=== PATIENT | male | born 1960 | race Caucasian/White ===

== ENCOUNTER → 2018-07-14 | Outpatient (REF) | payer BC ==
[2018-07-14 14:50] LABS: BASO # 0.1 10^3/uL (0.0-0.2); BASO % 1.2 % (0.0-1.0); EOS # 0.3 10^3/uL (0.0-0.50); EOS % 4.4 % (0.0-3.0); HEMATOCRIT 45.3 % (42.0-52.0); HEMOGLOBIN 15.8 g/dl (13.5-17.5); IMMATURE GRANULOCYTE % 0.2 % (0-3.0); LYMPH # 1.8 10^3/uL (1.5-4.5); LYMPH % 30.6 % (24.0-44.0); MEAN CORPUSCULAR HEMOGLOBIN 31.7 pg (27.0-33.0); MEAN CORPUSCULAR HGB CONC 34.9 g/dl (32.0-36.5); MONO # 0.5 10^3/uL (0.0-0.8); MONO % 8.6 % (0.0-5.0); NEUTROPHILS # 3.1 10^3/uL (1.8-7.7); PLATELET COUNT, AUTOMATED 257 10^3/uL (150-450); RED BLOOD COUNT 4.98 10^6/uL (4.30-6.10); RED CELL DISTRIBUTION WIDTH 12.2 % (11.5-14.5); WHITE BLOOD COUNT 5.7 10^3/uL (4.0-10.0)
[2018-07-14 14:56] LABS: ALBUMIN 4.1 GM/DL (3.2-5.2); ALBUMIN/GLOBULIN RATIO 1.32 (1.00-1.93); ALKALINE PHOSPHATASE 66 U/L (45-117); ALT/SGPT 43 U/L (12-78); ANION GAP 7 MEQ/L (8-16); AST/SGOT 21 U/L (7-37); BILIRUBIN,TOTAL 0.5 MG/DL (0.2-1.0); BLOOD UREA NITROGEN 12 MG/DL (7-18); CALCIUM LEVEL 8.2 MG/DL (8.5-10.1); CARBON DIOXIDE LEVEL 29 MEQ/L (21-32); CHLORIDE LEVEL 105 MEQ/L (98-107); CHOLESTEROL LEVEL 271 MG/DL (<200); CHOLESTEROL RISK RATIO 5.113 (<5); CREATININE FOR GFR 1.12 MG/DL (0.70-1.30); FREE T4 1.02 NG/DL (0.76-1.46); GLOMERULAR FILTRATION RATE > 60.0 (>56); GLUCOSE, FASTING 99 MG/DL (70-100); HDL CHOLESTEROL 53 MG/DL (>40); LDL CHOLESTEROL 183 MG/DL (<100); NON-HDL-C 218 MG/DL; POTASSIUM SERUM 4.2 MEQ/L (3.5-5.1); PSA SCREENING 2.8 NG/ML (< 4.0); SODIUM LEVEL 141 MEQ/L (136-145); TOTAL PROTEIN 7.2 GM/DL (6.4-8.2); TRIGLYCERIDES LEVEL 175 MG/DL (<150)
[2018-07-14 14:58] LABS: TOTAL 25(OH) VITAMIN D 37.3 NG/ML (30.0-100.0)
[2018-07-14 15:27] LABS: ESTIMATED AVERAGE GLUCOSE 108 MG/DL (60-110); HEMOGLOBIN A1c 5.4 %
== END ==
LOC: M SFHCSACK 09:26
DX: I10 Essential (primary) hypertension (principal); E83.51 Hypocalcemia; E03.8 Other specified hypothyroidism; R73.01 Impaired fasting glucose; E78.2 Mixed hyperlipidemia; Z12.5 Encounter for screening for malignant neoplasm of prostate; E55.9 Vitamin D deficiency, unspecified
CPT/HCPCS: 84443

== ENCOUNTER → 2018-08-18 | Outpatient (REF) | payer BC | LOC: M SFHCPLAZ 17:38 | PROVIDERS: ATTEND Dermatology | DX: L72.0 Epidermal cyst (principal) ==

== ENCOUNTER → 2018-11-10 | Outpatient (REF) | payer BC ==
[2018-11-10 14:27] LABS: BASO # 0.1 10^3/uL (0.0-0.2); BASO % 0.9 % (0.0-1.0); EOS # 0.2 10^3/uL (0.0-0.50); EOS % 3.3 % (0.0-3.0); HEMATOCRIT 44.7 % (42.0-52.0); HEMOGLOBIN 15.1 g/dl (13.5-17.5); LYMPH # 1.3 10^3/uL (1.5-4.5); LYMPH % 22.4 % (24.0-44.0); MEAN CORPUSCULAR HEMOGLOBIN 31.9 pg (27.0-33.0); MEAN CORPUSCULAR HGB CONC 33.8 g/dl (32.0-36.5); MEAN CORPUSCULAR VOLUME 94.3 fl (80.0-96.0); MONO # 0.5 10^3/uL (0.0-0.8); MONO % 9.2 % (0.0-5.0); NEUTROPHILS # 3.6 10^3/uL (1.8-7.7); NEUTROPHILS % 63.7 % (36.0-66.0); PLATELET COUNT, AUTOMATED 243 10^3/uL (150-450); RED BLOOD COUNT 4.74 10^6/uL (4.30-6.10); WHITE BLOOD COUNT 5.7 10^3/uL (4.0-10.0)
[2018-11-10 14:34] LABS: ALBUMIN 4.1 GM/DL (3.2-5.2); ALT/SGPT 81 U/L (12-78); BILIRUBIN,TOTAL 0.5 MG/DL (0.2-1.0); BLOOD UREA NITROGEN 18 MG/DL (7-18); CALCIUM LEVEL 7.3 MG/DL (8.5-10.1); CARBON DIOXIDE LEVEL 28 MEQ/L (21-32); CHLORIDE LEVEL 106 MEQ/L (98-107); CHOLESTEROL LEVEL 210 MG/DL (<200); CHOLESTEROL RISK RATIO 4.468 (<5); CREATININE FOR GFR 1.11 MG/DL (0.70-1.30); GLOMERULAR FILTRATION RATE > 60.0 (>56); GLUCOSE, FASTING 109 MG/DL (70-100); HDL CHOLESTEROL 47 MG/DL (>40); LDL CHOLESTEROL 125 MG/DL (<100); NON-HDL-C 163 MG/DL; POTASSIUM SERUM 4.7 MEQ/L (3.5-5.1); SODIUM LEVEL 140 MEQ/L (136-145); TOTAL PROTEIN 7.3 GM/DL (6.4-8.2); TRIGLYCERIDES LEVEL 192 MG/DL (<150)
== END ==
LOC: M SFHCSACK 08:17
PROVIDERS: ATTEND Physician Assistant
DX: I10 Essential (primary) hypertension (principal); E78.2 Mixed hyperlipidemia

== ENCOUNTER → 2019-05-25 | Outpatient (REF) | payer BC ==
[2019-05-25 14:36] LABS: BASO % 0.7 % (0.0-1.0); EOS # 0.3 10^3/uL (0.0-0.5); EOS % 4.9 % (0.0-3.0); HEMATOCRIT 42.9 % (42.0-52.0); HEMOGLOBIN 14.5 g/dl (13.5-17.5); LYMPH # 1.3 10^3/uL (1.5-5.0); LYMPH % 23.1 % (24.0-44.0); MEAN CORPUSCULAR HEMOGLOBIN 32.5 pg (27.0-33.0); MEAN CORPUSCULAR HGB CONC 33.8 g/dl (32.0-36.5); MEAN CORPUSCULAR VOLUME 96.2 fl (80.0-96.0); MONO # 0.6 10^3/uL (0.0-0.8); MONO % 10.6 % (0.0-5.0); NEUTROPHILS # 3.5 10^3/uL (1.5-8.5); NEUTROPHILS % 60.4 % (36.0-66.0); PLATELET COUNT, AUTOMATED 219 10^3/uL (150-450); RED BLOOD COUNT 4.46 10^6/uL (4.30-6.10); WHITE BLOOD COUNT 5.8 10^3/uL (4.0-10.0)
[2019-05-25 14:50] LABS: ALT/SGPT 55 U/L (12-78); BILIRUBIN,TOTAL 0.5 MG/DL (0.2-1.0); BLOOD UREA NITROGEN 19 MG/DL (7-18); CALCIUM LEVEL 6.8 MG/DL (8.5-10.1); CARBON DIOXIDE LEVEL 29 MEQ/L (21-32); CHLORIDE LEVEL 105 MEQ/L (98-107); CHOLESTEROL LEVEL 171 MG/DL (<200); CHOLESTEROL RISK RATIO 3.717 (<5); CREATININE FOR GFR 1.03 MG/DL (0.70-1.30); FREE T4 1.08 NG/DL (0.76-1.46); GLOMERULAR FILTRATION RATE > 60.0 (>56); GLUCOSE, FASTING 113 MG/DL (70-100); HDL CHOLESTEROL 46 MG/DL (>40); LDL CHOLESTEROL 90 MG/DL (<100); NON-HDL-C 125 MG/DL; POTASSIUM SERUM 4.4 MEQ/L (3.5-5.1); SODIUM LEVEL 141 MEQ/L (136-145); THYROID STIMULATING HORMONE 0.459 uIU/ML (0.358-3.740); TRIGLYCERIDES LEVEL 176 MG/DL (<150)
[2019-05-25 14:52] LABS: TOTAL 25(OH) VITAMIN D 41.3 NG/ML (30.0-100.0)
== END ==
LOC: M SFHCSACK 08:14
PROVIDERS: ATTEND Physician Assistant
DX: I10 Essential (primary) hypertension (principal); R73.01 Impaired fasting glucose; E06.3 Autoimmune thyroiditis; E78.2 Mixed hyperlipidemia; E55.9 Vitamin D deficiency, unspecified

== ENCOUNTER → 2019-06-08 | Outpatient (REF) | payer BC ==
[2019-06-08 15:16] LABS: ALBUMIN 4.1 GM/DL (3.2-5.2); BILIRUBIN,DIRECT 0.1 MG/DL (0.0-0.2); BILIRUBIN,TOTAL 0.6 MG/DL (0.2-1.0); CALCIUM LEVEL 7.1 MG/DL (8.5-10.1); CHOLESTEROL RISK RATIO 3.982 (<5); FREE T4 0.97 NG/DL (0.76-1.46); PHOSPHORUS LEVEL 4.9 MG/DL (2.5-4.9); THYROID STIMULATING HORMONE 0.422 uIU/ML (0.358-3.740); TOTAL PROTEIN 7.2 GM/DL (6.4-8.2)
== END ==
LOC: M LAB REF 14:28
PROVIDERS: ATTEND Internal Medicine Endocrinology, Diabetes & Metabolism
DX: E89.2 Postprocedural hypoparathyroidism (principal)

== ENCOUNTER → 2019-09-03 | Outpatient (CLI) | payer BC ==
[2019-09-03 15:01] LABS: CALCIUM LEVEL 7.3 MG/DL (8.5-10.1); PHOSPHORUS LEVEL 5.1 MG/DL (2.5-4.9)
== END ==
LOC: M SFHCSACK 09:12
PROVIDERS: ATTEND Family Medicine
DX: E89.2 Postprocedural hypoparathyroidism (principal); E29.1 Testicular hypofunction

== ENCOUNTER → 2020-01-21 | Outpatient (REF) | payer BC ==
[~2020-01-21] MED LIST: BISO5TAB14 PO; CAND16TA7 PO; CAND32TA9 PO; CYMB60CA3 PO; KETO10TAB PO; LEVO150T7 PO; LORA0.5T5 PO; SIMV40TA20 PO
[2020-01-21 11:23] LABS: BASO # 0.1 10^3/uL (0.0-0.2); BASO % 1.1 % (0.0-1.0); EOS # 0.3 10^3/uL (0.0-0.5); EOS % 5.1 % (0.0-3.0); HEMATOCRIT 44.8 % (42.0-52.0); HEMOGLOBIN 14.9 g/dl (13.5-17.5); LYMPH # 1.7 10^3/uL (1.5-5.0); LYMPH % 26.4 % (24.0-44.0); MEAN CORPUSCULAR HEMOGLOBIN 32.1 pg (27.0-33.0); MEAN CORPUSCULAR HGB CONC 33.3 g/dl (32.0-36.5); MEAN CORPUSCULAR VOLUME 96.6 fl (80.0-96.0); MONO # 0.6 10^3/uL (0.0-0.8); MONO % 9.3 % (0.0-5.0); NEUTROPHILS # 3.7 10^3/uL (1.5-8.5); NEUTROPHILS % 57.5 % (36.0-66.0); PLATELET COUNT, AUTOMATED 239 10^3/uL (150-450); RED BLOOD COUNT 4.64 10^6/uL (4.30-6.10); WHITE BLOOD COUNT 6.5 10^3/uL (4.0-10.0)
[2020-01-21 11:28] LABS: ALBUMIN 3.8 GM/DL (3.2-5.2); ALT/SGPT 81 U/L (12-78); BILIRUBIN,TOTAL 0.4 MG/DL (0.2-1.0); BLOOD UREA NITROGEN 12 MG/DL (7-18); CALCIUM LEVEL 7.6 MG/DL (8.5-10.1); CARBON DIOXIDE LEVEL 29 MEQ/L (21-32); CHLORIDE LEVEL 105 MEQ/L (98-107); CREATININE FOR GFR 1.02 MG/DL (0.70-1.30); GLOMERULAR FILTRATION RATE > 60.0 (>56); GLUCOSE, FASTING 112 MG/DL (70-100); POTASSIUM SERUM 4.5 MEQ/L (3.5-5.1); SODIUM LEVEL 140 MEQ/L (136-145); TOTAL PROTEIN 7.2 GM/DL (6.4-8.2)
[2020-01-21 18:59] LABS: APPEARANCE, URINE CLEAR (CLEAR); BACTERIA, URINE AUTO NEGATIVE (NEGATIVE); BILIRUBIN, URINE AUTO NEGATIVE (NEGATIVE); BLOOD, URINE BLOOD NEGATIVE (NEGATIVE); COLOR, URINE YELLOW (YELLOW); GLUCOSE, URINE (UA) AUTO NEGATIVE (NEGATIVE); KETONE, URINE AUTO NEGATIVE (NEGATIVE); LEUKOCYTE ESTERASE, URINE AUTO TRACE (NEGATIVE); MUCUS, URINE SMALL (NEGATIVE); NITRITE, URINE AUTO NEGATIVE (NEGATIVE); PROTEIN, URINE AUTO NEGATIVE (NEGATIVE); RBC, URINE AUTO 0 /HPF (0-3); SPECIFIC GRAVITY URINE AUTO 1.019 (1.002-1.035); SQUAMOUS EPITHELIAL CELL UR AU 2 /HPF (0-6); UROBILINOGEN, URINE AUTO 0.2 mg/dL (0.0-2.0); WBC, URINE AUTO 5 /HPF (0-3)
[2020-01-22 17:03] LABS: HEPATITIS B SURFACE ANTIBODY POSITIVE (POSITIVE)
[2020-01-22 17:14] LABS: HEPATITIS B SURFACE ANTIGEN NEGATIVE (NEGATIVE)
[2020-01-22 17:42] LABS: HIV 1&2 SCREEN CENTAUR NEGATIVE (NEGATIVE)
[2020-01-26 21:07] LABS: CHLAMYDIA PHARYNGEAL APTIMA Negative (Negative); CHLAMYDIA RECTAL APTIMA Negative (Negative); GC PHARYNGEAL APTIMA Negative (Negative); GC RECTAL APTIMA Negative (Negative)
== END ==
LOC: M SFHCPLAZ 08:45
PROVIDERS: ATTEND Physician Assistant
DX: Z72.52 High risk homosexual behavior (principal); Z12.5 Encounter for screening for malignant neoplasm of prostate
CPT/HCPCS: 36415; 80053; 81001; 85025; 86706; 86780; 87340; 87389; 87491; 87591; G0103

== ENCOUNTER → 2020-02-02 | Outpatient (REF) | payer BC ==
[~2020-02-02] MED LIST changes: +ALBU8.5H INH; +CALC1CAP31 PO; +LORA1TAB4 PO; +OMEP-218 PO; +TRUVTAB PO
[2020-02-02 15:50] LABS: CHLAMYDIA DNA AMPLIFICATION NEGATIVE (NEGATIVE); GC DNA AMPLIFICATION NEGATIVE (NEGATIVE)
== END ==
LOC: M SFHCPLAZ 11:42
PROVIDERS: ATTEND Physician Assistant
DX: Z72.52 High risk homosexual behavior (principal)

== ENCOUNTER → 2020-02-23 | Outpatient (CLI) | payer BC ==
[2020-02-23 13:20] LABS: BLOOD UREA NITROGEN 15 MG/DL (7-18); CALCIUM LEVEL 6.8 MG/DL (8.5-10.1); CARBON DIOXIDE LEVEL 30 MEQ/L (21-32); CHLORIDE LEVEL 103 MEQ/L (98-107); CHOLESTEROL LEVEL 206 MG/DL (<200); CREATININE FOR GFR 1.03 MG/DL (0.70-1.30); GLOMERULAR FILTRATION RATE > 60.0 (>56); GLUCOSE, FASTING 99 MG/DL (70-100); HDL CHOLESTEROL 43 MG/DL (>40); LDL CHOLESTEROL 103 MG/DL (<100); NON-HDL-C 163 MG/DL; PHOSPHORUS LEVEL 3.6 MG/DL (2.5-4.9); POTASSIUM SERUM 4.2 MEQ/L (3.5-5.1); SODIUM LEVEL 137 MEQ/L (136-145); THYROID STIMULATING HORMONE 0.485 uIU/ML (0.358-3.740); TRIGLYCERIDES LEVEL 298 MG/DL (<150)
== END ==
LOC: M PLALAB 09:29
PROVIDERS: ATTEND Internal Medicine Endocrinology, Diabetes & Metabolism
DX: E89.2 Postprocedural hypoparathyroidism (principal); E06.3 Autoimmune thyroiditis; E88.81 Metabolic syndrome and other insulin resistance

== ENCOUNTER 2020-03-03 08:07 | Day surgery (SDC) | payer BC ==
[~2020-03-03] VITALS: Ht 177.8 cm; Wt 106.6 kg
[~2020-03-03 08:07] MED LIST changes: +LIDOCAINE 2% 100MG/5ML SDV (FOR ANES.) As Ordered ONE; +propofoL 200 MG/20 ML VIAL As Ordered ONE
--- NOTE | 2020-04-13 11:31 | ROOR ---
Patient Name: Shemar Kirkpatrick Procedure Date: 03/03/2020 7:35 AM Date of : 1960 Age: 60 Room: [facility] Gender: Male Note Status: Finalized Procedure: Colonoscopy Indications: High risk colon cancer surveillance: Personal history of colonic polyps Providers: Nicholas Abbott Jr, MD Referring MD: Lenore Caballero Requesting Provider: Medicines: Propofol per Anesthesia Complications: No immediate complications. Procedure: Pre-Anesthesia Assessment: - Prior to the procedure, a History and Physical was performed, and patient medications and allergies were reviewed. The patient is competent. The risks and benefits of the procedure and the sedation options and risks were discussed with the patient. All questions were answered and informed consent was obtained. Patient identification and proposed procedure were verified by the physician and the nurse in the pre-procedure area and in the procedure room. Mental Status Examination: alert and oriented. Airway Examination: normal oropharyngeal airway and neck mobility. Respiratory Examination: clear to auscultation. CV Examination: normal. ASA Grade Assessment: II - A patient with mild systemic disease. After reviewing the risks and benefits, the patient was deemed in satisfactory condition to undergo the procedure. The anesthesia plan was to use moderate sedation / analgesia (conscious sedation). Immediately prior to administration of medications, the patient was re-assessed for adequacy to receive sedatives. The heart rate, respiratory rate, oxygen saturations, blood pressure, adequacy of pulmonary ventilation, and response to care were monitored throughout the procedure. The physical status of the patient was re-assessed after the procedure. The Colonoscope was introduced through the anus and advanced to the cecum, identified by appendiceal orifice and ileocecal valve. The colonoscopy was performed without difficulty. The patient tolerated the procedure well. The quality of the bowel preparation was adequate. Findings: The rectum, recto-sigmoid colon, descending colon, cecum, appendiceal orifice and ileocecal valve appeared normal. Non-bleeding external and internal hemorrhoids were found during retroflexion and during endoscopy. The hemorrhoids were Grade II (internal hemorrhoids that prolapse but reduce spontaneously) and Grade III (internal hemorrhoids that prolapse but require manual reduction). Multiple small and large-mouthed diverticula were found in the sigmoid colon. A few small-mouthed diverticula were found in the transverse colon and ascending colon. Impression: - The rectum, recto-sigmoid colon, descending colon, cecum, appendiceal orifice and ileocecal valve are normal. - Non-bleeding external and internal hemorrhoids. - Diverticulosis in the sigmoid colon. - Diverticulosis in the transverse colon and in the ascending colon. - No specimens collected. Recommendation: - Discharge patient to home (ambulatory). - Repeat colonoscopy in 5 years for surveillance. Nicholas Abbott MD Nicholas Abbott Jr, MD 03/03/2020 8:27:25 AM Electronically signed by Nicholas Abbott Jr, MD Number of Addenda: 0 Note Initiated On: 03/03/2020 7:35 AM Estimated Blood Loss: Estimated blood loss: none.
== END 2020-03-03 08:55 | disposition home or self-care (01) ==
LOC: M OPP 08:07
PROVIDERS: ATTEND Surgery
DX: Z12.11 Encounter for screening for malignant neoplasm of colon (principal); Z86.010 Personal history of colon polyps; K64.1 Second degree hemorrhoids; K64.2 Third degree hemorrhoids; K57.30 Diverticulosis of large intestine without perforation or abscess without bleeding; G47.30 Sleep apnea, unspecified; Z79.899 Other long term (current) drug therapy

== ENCOUNTER → 2020-06-21 | Outpatient (REF) | payer BC ==
[~2020-06-21] MED LIST changes: -LIDOCAINE 2% 100MG/5ML SDV (FOR ANES.) As Ordered ONE; -propofoL 200 MG/20 ML VIAL As Ordered ONE
[2020-06-21 14:01] LABS: APPEARANCE, URINE CLEAR (CLEAR); BACTERIA, URINE AUTO NEGATIVE (NEGATIVE); BILIRUBIN, URINE AUTO NEGATIVE (NEGATIVE); BLOOD, URINE BLOOD NEGATIVE (NEGATIVE); COLOR, URINE YELLOW (YELLOW); GLUCOSE, URINE (UA) AUTO NEGATIVE (NEGATIVE); KETONE, URINE AUTO NEGATIVE (NEGATIVE); LEUKOCYTE ESTERASE, URINE AUTO NEGATIVE (NEGATIVE); MUCUS, URINE SMALL (NEGATIVE); NITRITE, URINE AUTO NEGATIVE (NEGATIVE); PROTEIN, URINE AUTO NEGATIVE (NEGATIVE); RBC, URINE AUTO 1 /HPF (0-3); SPECIFIC GRAVITY URINE AUTO 1.024 (1.002-1.035); SQUAMOUS EPITHELIAL CELL UR AU 1 /HPF (0-6); UROBILINOGEN, URINE AUTO 0.2 mg/dL (0.0-2.0); WBC, URINE AUTO 4 /HPF (0-3)
[2020-06-21 14:18] LABS: BLOOD UREA NITROGEN 13 MG/DL (7-18); CARBON DIOXIDE LEVEL 29 MEQ/L (21-32); CHLORIDE LEVEL 104 MEQ/L (98-107); GLOMERULAR FILTRATION RATE > 60.0 (>56); GLUCOSE, FASTING 108 MG/DL (70-100); POTASSIUM SERUM 4.5 MEQ/L (3.5-5.1); SODIUM LEVEL 139 MEQ/L (136-145)
[2020-06-21 15:09] LABS: HIV 1&2 SCREEN CENTAUR NEGATIVE (NEGATIVE)
[2020-06-21 15:36] LABS: CHLAMYDIA DNA AMPLIFICATION NEGATIVE (NEGATIVE); GC DNA AMPLIFICATION NEGATIVE (NEGATIVE)
== END ==
LOC: M SFHCPLAZ 09:07
PROVIDERS: ATTEND Physician Assistant
DX: Z72.52 High risk homosexual behavior (principal)

== ENCOUNTER → 2020-09-29 | Outpatient (CLI) | payer BC ==
[2020-09-29 11:35] LABS: CALCIUM LEVEL 7.1 MG/DL (8.5-10.1); CHOLESTEROL RISK RATIO 4.263 (<5); THYROID STIMULATING HORMONE 0.444 uIU/ML (0.358-3.740)
== END ==
LOC: M PLALAB 08:02
PROVIDERS: ATTEND Internal Medicine Endocrinology, Diabetes & Metabolism
DX: E89.2 Postprocedural hypoparathyroidism (principal); E06.3 Autoimmune thyroiditis; E29.1 Testicular hypofunction; E88.81 Metabolic syndrome and other insulin resistance

== ENCOUNTER → 2020-11-03 | Outpatient (REF) | payer BC ==
[2020-11-03 18:00] LABS: BLOOD UREA NITROGEN 18 MG/DL (7-18); CALCIUM LEVEL 8.8 MG/DL (8.5-10.1); CARBON DIOXIDE LEVEL 31 MEQ/L (21-32); CHLORIDE LEVEL 105 MEQ/L (98-107); CREATININE FOR GFR 0.93 MG/DL (0.70-1.30); GLOMERULAR FILTRATION RATE > 60.0 (>56); GLUCOSE, FASTING 91 MG/DL (70-100); POTASSIUM SERUM 4.1 MEQ/L (3.5-5.1); SODIUM LEVEL 139 MEQ/L (136-145)
[2020-11-03 18:52] LABS: HIV 1&2 SCREEN CENTAUR NEGATIVE (NEGATIVE)
[2020-11-03 18:53] LABS: APPEARANCE, URINE CLEAR (CLEAR); BACTERIA, URINE AUTO NEGATIVE (NEGATIVE); BILIRUBIN, URINE AUTO NEGATIVE (NEGATIVE); BLOOD, URINE BLOOD NEGATIVE (NEGATIVE); COLOR, URINE YELLOW (YELLOW); GLUCOSE, URINE (UA) AUTO NEGATIVE (NEGATIVE); KETONE, URINE AUTO NEGATIVE (NEGATIVE); LEUKOCYTE ESTERASE, URINE AUTO TRACE (NEGATIVE); NITRITE, URINE AUTO NEGATIVE (NEGATIVE); PROTEIN, URINE AUTO NEGATIVE (NEGATIVE); RBC, URINE AUTO 1 /HPF (0-3); SPECIFIC GRAVITY URINE AUTO 1.021 (1.002-1.035); SQUAMOUS EPITHELIAL CELL UR AU 0 /HPF (0-6); UROBILINOGEN, URINE AUTO 0.2 mg/dL (0.0-2.0); WBC, URINE AUTO 7 /HPF (0-3)
[2020-11-03 19:48] LABS: CHLAMYDIA DNA AMPLIFICATION NEGATIVE (NEGATIVE); GC DNA AMPLIFICATION NEGATIVE (NEGATIVE)
== END ==
LOC: M SFHCPLAZ 15:56
PROVIDERS: ATTEND Physician Assistant
DX: Z72.52 High risk homosexual behavior (principal)

== ENCOUNTER → 2021-02-23 | Outpatient (CLI) | payer BC ==
[~2021-02-23] MED LIST changes: +EMTR1TAB16 PO; -TRUVTAB PO
== END ==
LOC: M PLALAB 08:54
PROVIDERS: ATTEND Physician Assistant
DX: Z72.52 High risk homosexual behavior (principal)

== ENCOUNTER → 2021-03-06 | Outpatient (CLI) | payer BC ==
[2021-03-06 14:41] LABS: ALBUMIN 3.8 GM/DL (3.2-5.2); BILIRUBIN,DIRECT 0.2 MG/DL (0.0-0.2); BILIRUBIN,TOTAL 0.5 MG/DL (0.2-1.0)
== END ==
LOC: M PLALAB 11:38
DX: R94.5 Abnormal results of liver function studies (principal)

== ENCOUNTER → 2021-04-11 | Outpatient (CLI) | payer BC ==
[2021-04-11 14:18] LABS: CHOLESTEROL RISK RATIO 4.022 (<5); PHOSPHORUS LEVEL 5.7 MG/DL (2.5-4.9)
== END ==
LOC: M PLALAB 10:41
PROVIDERS: ATTEND Internal Medicine Endocrinology, Diabetes & Metabolism
DX: E89.2 Postprocedural hypoparathyroidism (principal); E88.81 Metabolic syndrome and other insulin resistance

== ENCOUNTER 2021-04-29 09:15 | Emergency (ER) | payer BC ==
[~2021-04-29] VITALS: Ht 177.8 cm; Wt 106.8 kg
[2021-04-29] MEDS ORDERED: KETAMINE HCL 200 MG/20 ML VIAL IV ONE (09:40)
[2021-04-29] MEDS ORDERED: NS 1,000 ML IV SCH (09:40)
--- NOTE | 2021-04-29 09:59 | REP ---
INDICATION: R/O DISLOCATION. COMPARISON: None. TECHNIQUE: Two views of the right shoulder were obtained. FINDINGS: There is an anterior shoulder dislocation. No associated fractures are identified. IMPRESSION: Anterior shoulder dislocation. <Electronically signed by Hemant Grayson > 04/29/21 [id number]
[2021-04-29] MEDS: propofoL 200 MG/20 ML VIAL IV.PROC PRN ×3 (10:59→11:09)
--- NOTE | 2021-04-29 11:31 | REP ---
INDICATION: post reduction. COMPARISON: Right shoulder, 04/29/2021, 9:25 a.m. TECHNIQUE: AP portable image of the right shoulder was obtained. FINDINGS: There has been interval reduction of the anterior shoulder dislocation. There is a small Hill-Sachs deformity. IMPRESSION: Interval reduction of the right anterior shoulder dislocation. There is a small Hill-Sachs deformity. <Electronically signed by Hemant Grayson > 04/29/21 [id number]
[2021-04-29] MEDS ORDERED: CAND16TA7 PO (11:54)
[2021-04-29 13:45] VITALS: BP 145/82
== END 2021-04-29 14:05 | disposition home or self-care (01) ==
LOC: M ED 09:15
DX: S42.291A Other displaced fracture of upper end of right humerus, initial encounter for closed fracture (principal); S43.011A Anterior subluxation of right humerus, initial encounter; W01.0XXA Fall on same level from slipping, tripping and stumbling without subsequent striking against object, initial encounter; Y92.018 Other place in single-family (private) house as the place of occurrence of the external cause; I10 Essential (primary) hypertension; E07.9 Disorder of thyroid, unspecified; Z79.899 Other long term (current) drug therapy; Z79.890 Hormone replacement therapy

== ENCOUNTER → 2021-05-02 | Outpatient (CLI) | payer BC ==
--- NOTE | 2021-05-02 16:14 | REP ---
INDICATION: RT SHOULDER INSTABILITY. COMPARISON: Comparison April 29, 2021. TECHNIQUE: Four views of the right shoulder are obtained. FINDINGS: The right glenohumeral and acromioclavicular joints are normally aligned. There is a superolateral indentation on the proximal humerus suggesting a Hill-Sachs impaction fracture deformity. There is irregularity of the inferior glenoid margin which may be spurring or a Bankart lesion. AC joint is normally aligned. There is a small accessory ossicle at the superior aspect of the AC joint. The visualized right rib cage is normal. IMPRESSION: The right glenohumeral joint remains reduced. Question Hill-Sachs and Bankart lesions. Accessory ossicle at the slightly hypertrophied AC joint. <Electronically signed by Sagar Coley > 05/02/21 [id number]
== END ==
LOC: M SOG 13:57
PROVIDERS: ATTEND Orthopaedic Surgery Sports Medicine
DX: M25.311 Other instability, right shoulder (principal)

== ENCOUNTER → 2021-05-04 | Outpatient (CLI) | payer BC ==
[~2021-05-04] MED LIST changes: +PROHANCE 279.3MG/ML 15ML VIAL As Ordered ONE; +PROHANCE 279.3MG/ML 5ML VIAL As Ordered ONE
--- NOTE | 2021-05-04 16:02 | REP ---
INDICATION: OTHER INSTABILITY RT SHOULDER. COMPARISON: Comparison right shoulder radiographs are from April 29 and May 02, 2021. The earlier radiographic study showed a right glenohumeral anterior inferior dislocation. TECHNIQUE: Pre and post intravenous gadolinium enhanced imaging is acquired as requested. Axial, oblique coronal, and oblique sagittal imaging planes are included. T1-T2 weighted scans are obtained with without fat saturation. The gadolinium enhancement dose is 20 mL of intravenous ProHance. FINDINGS: The glenohumeral articulation is normally aligned. There is however a Hill-Sachs impaction deformity at the superolateral aspect of the humeral head with some adjacent marrow edema. There is a moderate glenohumeral joint effusion. The anterior cartilaginous labrum appears to be stripped off and fragmented material is seen in floating within the axillary recess. The anterior capsule is seen medially from its usual attachment. There is some irregularity of the posterior cartilaginous labrum as well. No definite superior labral tear is seen. Biceps tendon is intact. There is focal T2 hyperintensity in the distal insertion of the supraspinatus tendon consistent with partial thickness supraspinatus lesion. The subscapularis tendon is intact. Infraspinatus tendon shows increased signal intensity adjacent to the Hill-Sachs impaction deformity. IMPRESSION: Evidence of recent anterior inferior glenohumeral dislocation with and extensive anterior cartilaginous labral tear. The fragments of labral material are believed to be visible in the axillary recess. There is a Hill-Sachs impaction fracture deformity. No bony labral fracture is appreciated. A glenohumeral joint effusion is seen. There is increased signal intensity in both the distal supraspinatus and distal infraspinatus tendons. <Electronically signed by Sagar Coley > 05/04/21 [id number]
== END ==
LOC: M RAD 13:36
PROVIDERS: ATTEND Orthopaedic Surgery Sports Medicine
DX: M25.311 Other instability, right shoulder (principal)

== ENCOUNTER → 2021-10-16 | Outpatient (CLI) | payer BC ==
[~2021-10-16] MED LIST changes: +CAND16TA17 PO; -CAND16TA7 PO; +CAND32TA18 PO; -CAND32TA9 PO; -CYMB60CA3 PO; +CYMB60CA4 PO; +OMEP-173 PO; -OMEP-218 PO; -PROHANCE 279.3MG/ML 15ML VIAL As Ordered ONE; -PROHANCE 279.3MG/ML 5ML VIAL As Ordered ONE
== END ==
LOC: M RAD 10:40
PROVIDERS: ATTEND Physician Assistant
DX: M67.432 Ganglion, left wrist (principal)

== ENCOUNTER → 2021-10-16 | Outpatient (CLI) | payer BC ==
[2021-10-16 13:22] LABS: BASO # 0.1 10^3/uL (0.0-0.2); EOS # 0.3 10^3/uL (0.0-0.5); EOS % 5.2 % (0.0-3.0); HEMOGLOBIN 15.4 g/dl (13.5-17.5); LYMPH # 1.5 10^3/uL (1.5-5.0); LYMPH % 26.9 % (24.0-44.0); MEAN CORPUSCULAR HEMOGLOBIN 32.7 pg (27.0-33.0); MEAN CORPUSCULAR VOLUME 93.4 fl (80.0-96.0); MONO # 0.6 10^3/uL (0.0-0.8); MONO % 9.6 % (2.0-8.0); NEUTROPHILS # 3.2 10^3/uL (1.5-8.5); NEUTROPHILS % 56.8 % (36.0-66.0); PLATELET COUNT, AUTOMATED 237 10^3/uL (150-450); RED BLOOD COUNT 4.71 10^6/uL (4.30-6.10); WHITE BLOOD COUNT 5.7 10^3/uL (4.0-10.0)
[2021-10-16 13:57] LABS: ALBUMIN 4.1 GM/DL (3.2-5.2); ALT/SGPT 52 U/L (12-78); BILIRUBIN,TOTAL 0.4 MG/DL (0.2-1.0); BLOOD UREA NITROGEN 17 MG/DL (7-18); CALCIUM LEVEL 7.2 MG/DL (8.5-10.1); CARBON DIOXIDE LEVEL 30 MEQ/L (21-32); CHLORIDE LEVEL 107 MEQ/L (98-107); CHOLESTEROL LEVEL 145 MG/DL (<200); CHOLESTEROL RISK RATIO 3.295 (<5); CREATININE FOR GFR 0.99 MG/DL (0.70-1.30); GLOMERULAR FILTRATION RATE > 60.0 (>56); GLUCOSE, FASTING 94 MG/DL (70-100); HDL CHOLESTEROL 44 MG/DL (>40); LDL CHOLESTEROL 71 MG/DL (<100); NON-HDL-C 101 MG/DL; POTASSIUM SERUM 4.9 MEQ/L (3.5-5.1); SODIUM LEVEL 140 MEQ/L (136-145); TOTAL PROTEIN 6.9 GM/DL (6.4-8.2); TRIGLYCERIDES LEVEL 149 MG/DL (<150)
[2021-10-16 14:42] LABS: HIV 1&2 SCREEN CENTAUR NEGATIVE (NEGATIVE)
== END ==
LOC: M PLALAB 11:30
PROVIDERS: ATTEND Physician Assistant
DX: Z72.52 High risk homosexual behavior (principal)

== ENCOUNTER → 2021-12-11 | Outpatient (CLI) | payer BC ==
[2021-12-11 14:51] LABS: FREE T4 0.94 NG/DL (0.76-1.46); PROSTATIC SPECIFIC AG MONITOR 3.88 NG/ML (< 4.00); THYROID STIMULATING HORMONE 3.49 uIU/ML (0.358-3.740)
[2021-12-11 14:53] LABS: TOTAL 25(OH) VITAMIN D 21.3 NG/ML (30.0-100.0)
== END ==
LOC: M PLALAB 09:38
PROVIDERS: ATTEND Internal Medicine Endocrinology, Diabetes & Metabolism
DX: E06.3 Autoimmune thyroiditis (principal)

== ENCOUNTER → 2022-01-22 | Outpatient (CLI) | payer BC | LOC: M PLALAB 13:22 | PROVIDERS: ATTEND Physician Assistant | DX: R97.20 Elevated prostate specific antigen [PSA] (principal) ==

== ENCOUNTER → 2022-03-20 | Outpatient (REF) | payer BC | LOC: M SMT 13:18 | PROVIDERS: ATTEND Urology | DX: R97.20 Elevated prostate specific antigen [PSA] (principal) ==

== ENCOUNTER → 2022-06-11 | Outpatient (CLI) | payer BC ==
[2022-06-11 15:43] LABS: BLOOD UREA NITROGEN 20 MG/DL (7-18); CALCIUM LEVEL 7.2 MG/DL (8.8-10.2); CARBON DIOXIDE LEVEL 27 MEQ/L (21-32); CHLORIDE LEVEL 103 MEQ/L (98-107); CREATININE FOR GFR 1.24 MG/DL (0.70-1.30); GLOMERULAR FILTRATION RATE > 60.0 (>49); GLUCOSE, FASTING 117 MG/DL (70-100); POTASSIUM SERUM 3.9 MEQ/L (3.5-5.1); SODIUM LEVEL 139 MEQ/L (136-145)
== END ==
LOC: M PLALAB 09:29
PROVIDERS: ATTEND Physician Assistant
DX: I10 Essential (primary) hypertension (principal)

== ENCOUNTER → 2022-06-11 | Outpatient (CLI) | payer BC | LOC: M PLALAB 09:33 | PROVIDERS: ATTEND Urology | DX: C61 Malignant neoplasm of prostate (principal) ==

== ENCOUNTER → 2022-06-11 | Outpatient (CLI) | payer BC ==
[2022-06-11 15:21] LABS: CALCIUM LEVEL 7.2 MG/DL (8.8-10.2); THYROID STIMULATING HORMONE 3.53 uIU/ML (0.358-3.740)
== END ==
LOC: M PLALAB 09:31
PROVIDERS: ATTEND Internal Medicine Endocrinology, Diabetes & Metabolism
DX: E89.2 Postprocedural hypoparathyroidism (principal); E06.3 Autoimmune thyroiditis

== ENCOUNTER → 2022-07-09 | Outpatient (CLI) | payer BC ==
[~2022-07-09] MED LIST changes: +OMEGA-3 1000MG CAPSULE ONE; +PROHANCE 279.3MG/ML 15ML VIAL ONE; +PROHANCE 279.3MG/ML 5ML VIAL ONE
== END ==
LOC: M PLAIMG 08:06
PROVIDERS: ATTEND Physician Assistant
DX: M67.432 Ganglion, left wrist (principal)

== ENCOUNTER → 2022-09-13 | Outpatient (CLI) | payer BC ==
[~2022-09-13] MED LIST changes: -OMEGA-3 1000MG CAPSULE ONE; -PROHANCE 279.3MG/ML 15ML VIAL ONE; -PROHANCE 279.3MG/ML 5ML VIAL ONE
[2022-09-13 11:11] LABS: ALBUMIN 3.9 G/DL (3.2-5.2); ALKALINE PHOSPHATASE 100 U/L (46-116); ALT/SGPT 57 U/L (7.0-40); AST/SGOT 38 U/L (<34); BILIRUBIN,TOTAL 0.4 MG/DL (0.3-1.2); BLOOD UREA NITROGEN 26 MG/DL (9-23); CALCIUM LEVEL 6.7 MG/DL (8.3-10.6); CARBON DIOXIDE LEVEL 28 MMOL/L (20-31); CHLORIDE LEVEL 103 MMOL/L (98-107); GLOMERULAR FILTRATION RATE > 60.0 (>49); GLUCOSE, FASTING 120 MG/DL (74-106); POTASSIUM SERUM 3.9 MMOL/L (3.5-5.1); SODIUM LEVEL 137 MMOL/L (136-145); TOTAL PROTEIN 6.7 G/DL (5.7-8.2)
[2022-09-13 11:13] LABS: TOTAL 25(OH) VITAMIN D 41.2 NG/ML (20.0-100.0)
== END ==
LOC: M PLALAB 07:12
PROVIDERS: ATTEND Internal Medicine Endocrinology, Diabetes & Metabolism
DX: E06.3 Autoimmune thyroiditis (principal)

== ENCOUNTER → 2022-10-01 | Outpatient (CLI) | payer BC | LOC: M PLALAB 13:21 | PROVIDERS: ATTEND Urology | DX: C61 Malignant neoplasm of prostate (principal) ==

== ENCOUNTER → 2022-10-11 | Outpatient (CLI) | payer BC ==
[~2022-10-11] MED LIST changes: +PROHANCE 279.3MG/ML 15ML VIAL ONE; +PROHANCE 279.3MG/ML 5ML VIAL ONE
== END ==
LOC: M PLAIMG 13:19
PROVIDERS: ATTEND Urology
DX: C61 Malignant neoplasm of prostate (principal)
CPT/HCPCS: 72197; A9576

== ENCOUNTER → 2022-10-16 | Outpatient (REF) | payer BC ==
[~2022-10-16] MED LIST changes: -PROHANCE 279.3MG/ML 15ML VIAL ONE; -PROHANCE 279.3MG/ML 5ML VIAL ONE
== END ==
LOC: M SMT 12:58
PROVIDERS: ATTEND Urology
DX: C61 Malignant neoplasm of prostate (principal)

== ENCOUNTER → 2023-01-07 | Outpatient (CLI) | payer BC ==
[~2023-01-07] MED LIST changes: +LORA1TAB23 PO; -LORA1TAB4 PO
[2023-01-07 15:46] LABS: BLOOD UREA NITROGEN 19 MG/DL (9-23); CALCIUM LEVEL 7.1 MG/DL (8.3-10.6); CARBON DIOXIDE LEVEL 28 MMOL/L (20-31); CHLORIDE LEVEL 102 MMOL/L (98-107); CHOLESTEROL LEVEL 172 MG/DL (<200); CHOLESTEROL RISK RATIO 4.39 (<5); CREATININE FOR GFR 1.23 MG/DL (0.70-1.30); GLOMERULAR FILTRATION RATE > 60.0 (>49); GLUCOSE, FASTING 99 MG/DL (74-106); HDL CHOLESTEROL 39.1 MG/DL (>40); LDL CHOLESTEROL 99.5 MG/DL (<100); NON-HDL-C 132.9 MG/DL; POTASSIUM SERUM 3.4 MMOL/L (3.5-5.1); SODIUM LEVEL 138 MMOL/L (136-145); TRIGLYCERIDES LEVEL 167 MG/DL (<150)
[2023-01-07 15:48] LABS: THYROID STIMULATING HORMONE 0.099 uIU/ML (0.55-4.78); TOTAL 25(OH) VITAMIN D 40.9 NG/ML (20.0-100.0)
== END ==
LOC: M PLALAB 13:31
PROVIDERS: ATTEND Internal Medicine Endocrinology, Diabetes & Metabolism
DX: E06.3 Autoimmune thyroiditis (principal)

== ENCOUNTER → 2023-03-23 | Outpatient (CLI) | payer BC ==
[2023-03-23 12:25] LABS: FREE T4 1.39 NG/DL (0.89-1.76)
[2023-03-23 12:26] LABS: THYROID STIMULATING HORMONE 0.278 uIU/ML (0.55-4.78)
== END ==
LOC: M LAB 11:32
PROVIDERS: ATTEND Internal Medicine Endocrinology, Diabetes & Metabolism
DX: E06.3 Autoimmune thyroiditis (principal)

== ENCOUNTER → 2023-04-15 | Outpatient (CLI) | payer BC | LOC: M PLALAB 12:27 | PROVIDERS: ATTEND Urology | DX: C61 Malignant neoplasm of prostate (principal) ==